=== PATIENT | male | born 1955 | race Caucasian/White ===

== ENCOUNTER 2017-08-12 17:12 | Emergency (ER) | payer BC ==
[2017-08-12] MEDS ORDERED: ASPIRIN PO ONE (17:15)
[2017-08-12] MEDS ORDERED: NITROSTAT SL ONE (17:16)
[2017-08-12] MEDS ORDERED: ASPIRIN ONE (17:16)
--- NOTE | 2017-08-12 17:19 | DR.GENAD ---
HPI - PCP Primary Care Physician: [id number] - Complaint/Symptoms Chief Complaint Doctors Comments: Patient presented to the ED with complaint of midsternal chest all day with some pain in left shoulder. He denies diaphoresis. No history of cardiopulmonary disease or lung disease. ROS - Review of Systems Eyes: No Symptoms Reported ENTM: No Symptoms Reported Respiratoy: No Symptoms Reported Cardiovascular: Chest Pain (mid sternal) Gastrointestinal/Abdominal: No Symptoms Reported Genitourinary: No Symptoms Reported Neurological: No Symptoms Reported Musculoskeletal: No Symptoms Reported Integumentary: No Symptoms Reported Hematologic/Lymphatic: No Symptoms Reported Endocrine: No Symptoms Reported Psychiatric: No Symptoms Reported All Other Systems: Reviewed and Negative PE - Vital Signs Vitals: Temperature 97.2 F Pulse Rate [Right Brachial] 97 Pulse Rate 80 Respiratory Rate 20 Blood Pressure [Left Arm] 134/64 Blood Pressure 195/96 O2 Sat by Pulse Oximetry 94 - General General Appearance: Alert, In No Apparent Distress - Head Head Exam: Normal Inspection, Atraumatic - Eyes Eye exam: Normal Appearance, PERRL, EOMI - ENT ENT Exam: Normal Exam, Normal Oropharynx External Ear Exam: Normal External Inspection TM/Canal Exam: Bilateral Normal Nose Exam: Normal Nose Exam, Sinus Tenderness Mouth Exam: Normal Inspection Throat Exam: Normal Inspection - Neck Neck Exam: Normal Inspection - Chest Chest Inspection: Normal Inspection, Symmetric Chest Wall Rise - Respiratory Respiratory Exam: Normal Lung Sounds Bilat Respiratory Exam: Bilateral Clear to Auscultation - Cardiovascular Cardiovascular Exam: Regular Rate, Normal Rhythm - Abdominal Exam Abdominal Exam: Normal Inspection, Normal Bowel Sounds Abdominal Tenderness: negative: RUQ, RLQ, LUQ, LLQ, Epigastrium, Suprapubic, Diffuse, Mild, Moderate, Severe, Other - Extremities Extremities Exam: Normal Inspection, Full ROM - Back Back Exam: Normal Inspection, Full ROM - Neurologic Neurological Exam: Alert, Oriented X3, CN II-XII Intact - Psychiatric Psychiatric Exam: Normal Affect - Skin Skin Exam: Warm, Dry, Intact Course - Treatment Treatment: EKG: Sinus Rhythm probable LAE; inferior inartct age indeterminate, AnteriorLateral infarct, age inderterminate: Trop 70.68 - Reevaluation 1st: Improved - Consultation Called: 18:10 (Dr Ricci accepted patient for further management 1854) ROR - Labs Reviewed Laboratory Results Reviewed?: Yes (Trop 66.7) Result Diagrams: 08/12/17 17:08/12/17: Laboratory: WBC 9.2 X10^3/uL (3.6-10.0) 08/12/17: RBC 4.50 X10^6/uL (4.7-6.0) L 08/12/17: Hgb 14.9 g/dL (13.5-18.0) 08/12/17: Hct 43.0 % (42.0-54.0) 08/12/17: MCV 95.6 fL (80.0-100.0) 08/12/17 MCH 33.2 pg (27.0-34.0) 08/12/17 MCHC 34.8 g/dL (33.0-35.0) 08/12/17 RDW 13.0 % (11.6-16.5) 08/12/17 Plt Count 156 X10^3/uL (150.0-450.0) 08/12/17 MPV 10.0 fL (7.4-11.0) 08/12/17: Neut % 76.6 % (42.0-75.0) H 08/12/17: Lymph % 14.4 % (21.0-51.0) L 08/12/17: Adams % 7.9 % (0.0-13.0) 08/12/17: Eos % 0.2 % (0.9-2.9) L 08/12/17 Baso % 0.9 % (0.2-1.0) 08/12/17 Neut # 7.1 x10^3/uL (2.2-4.8) H 08/12/17 Lymph # 1.3 X10^3/uL (1.3-2.9) 08/12/17: Adams # 0.7 x10^3/uL (0.3-0.8) 08/12/17: Eos # 0.0 x10^3/uL (0.0-0.2) 08/12/17: Baso # 0.1 X10^3/uL (0.0-0.1) 08/12/17 17:27 Absolute Nucleated RBC 0.0 /100WBC 08/12/17 17:27 INR Target Range - 08/12/17 17: INR 0.93 (0.8-1.3) 08/12/17 17:27 PTT 29.1 SECONDS (22.9-36.5) 08/12/17 17: PTT Comment - 08/12/17 17:27 D-Dimer 183 ng/mL (0-400) 08/12/17 17:27 Sodium 135 mmol/L (136-145) L 08/12/17 17:27 Corrected Sodium TNP 08/12/17 17:27 Potassium 4.4 mmol/L (3.5-5.1) 08/12/17 17:27 Chloride 99 mmol/L (98-107) 08/12/17 17: Carbon Dioxide 25.0 mmol/L (21-32) 08/12/17 17:27 BUN 9 mg/dL (7-18) 08/12/17 17:27 Creatinine 0.81 mg/dL (0.70-1.30) 08/12/17 17:27 Est GFR (MDRD) Af Amer > 60 (>60) 08/12/17 17:27 Est GFR (MDRD) Non-Af > 60 (>60) 08/12/17 17:27 Glucose 105 mg/dL (65-99) H 08/12/17 17:27 Calcium 9.7 mg/dL (8.5-10.1) 08/12/17 17:27 Corrected Calcium TNP 08/12/17 17:27 Magnesium 1.6 mg/dL (1.7-2.9) L 08/12/17 17:27 Total Bilirubin 0.60 mg/dL (0.2-1.0) 08/12/17 17:27 AST 324 Units/L (15-37) H 08/12/17 17:27 ALT 60 Units/L (12-78) 08/12/17 17:27 Alkaline Phosphatase 50 Units/L (46-116) 08/12/17 17:27 Creatine Kinase 2591 Units/L (39-308) H 08/12/17 17:27 CK-MB (CK-2) 771.0 ng/mL (0-4.0) H* 08/12/17 17:27 CK/CKMB % Calc 29.8 % (<4) 08/12/17 17:27 Troponin I 70.68 ng/mL (0-1.5) H* 08/12/17 17:27 Total Protein 7.7 g/dL (6.4-8.2) 08/12/17 17:27 Albumin 3.8 g/dL (3.4-5.0) 08/12/17 17:27 Globulin 3.9 g/dL (2.5-4.5) 08/12/17 17:27 Albumin/Globulin Ratio 1.0 Ratio (1.1-2.1) L 08/12/17 17:27 - XRAY XRAY Interpreted by: Radiologist (Chest: No acute cardiopulmonary disease) - Diagnosis Discharge Problem: Chest pain, rule out acute myocardial infarction - Discharge Plan Condition: Stable - Follow ups/Referrals Follow ups/Referrals: NFD,None [Primary Care Provider] - 3 days - Instructions
[2017-08-12] MEDS: NITROSTAT SL PRN ×2 (17:40→17:45)
[2017-08-12 17:45] LABS: BASOPHILS # (AUTO) 0.1 X10^3/uL (0.0-0.1); BASOPHILS % (AUTO) 0.9 % (0.2-1.0); EOSINOPHILS % (AUTO) 0.2 % (0.9-2.9); HEMOGLOBIN 14.9 g/dL (13.5-18.0); LYMPHOCYTES # (AUTO) 1.3 X10^3/uL (1.3-2.9); LYMPHOCYTES % (AUTO) 14.4 % (21.0-51.0); MEAN CORPUSCULAR HEMOGLOBIN 33.2 pg (27.0-34.0); MEAN CORPUSCULAR HGB CONC 34.8 g/dL (33.0-35.0); MEAN CORPUSCULAR VOLUME 95.6 fL (80.0-100.0); MONOCYTES # (AUTO) 0.7 x10^3/uL (0.3-0.8); MONOCYTES % (AUTO) 7.9 % (0.0-13.0); NEUTROPHILS # (AUTO) 7.1 x10^3/uL (2.2-4.8); NEUTROPHILS % (AUTO) 76.6 % (42.0-75.0); PLATELET COUNT 156 X10^3/uL (150.0-450.0); WHITE BLOOD COUNT 9.2 X10^3/uL (3.6-10.0)
[2017-08-12 17:54] VITALS: BMI 25.8
[2017-08-12 17:59] LABS: BLOOD UREA NITROGEN 9 mg/dL (7-18); CALCIUM 9.7 mg/dL (8.5-10.1); CHLORIDE 99 mmol/L (98-107); CREATININE 0.81 mg/dL (0.70-1.30); SODIUM 135 mmol/L (136-145); eGFR BLACK RACES > 60 (>60); eGFR NON BLACK RACES > 60 (>60)
[2017-08-12 18:05] VITALS: BP 134/64
[2017-08-12] MEDS ORDERED: NITROGLYCERIN IV PREMIX 50 MG 50 MG/250 ML BAG IV ONE (18:16)
[2017-08-12] MEDS ORDERED: NS 1000 ML 1,000 ML ONE (18:17)
[2017-08-12 18:22] LABS: ALANINE AMINOTRANSFERASE 60 Units/L (12-78); ALBUMIN 3.8 g/dL (3.4-5.0); ALKALINE PHOSPHATASE 50 Units/L (46-116); ASPARTATE AMINO TRANSFERASE 324 Units/L (15-37); MAGNESIUM 1.6 mg/dL (1.7-2.9); TOTAL PROTEIN 7.7 g/dL (6.4-8.2)
[2017-08-12] MEDS ORDERED: BRILINTA PO ONE (18:27)
--- NOTE | 2017-08-12 18:27 | RAD ---
HISTORY: 61-year-old male with chest pain. Study: Frontal view of the chest. Comparison: None. Findings: The trachea is midline. The cardiac silhouette is unremarkable. The lungs are clear without focal c onsolidation, effusion or pneumothorax. Soft tissues are unremarkable. Osseous structures are unrema rkable. IMPRESSION: 1. No acute cardiopulmonary disease. Reported By:
[2017-08-12 18:29] LABS: CREATINE KINASE 2591 Units/L (39-308)
[2017-08-12 18:31] LABS: TROPONIN I 70.68 ng/mL (0-1.5)
[2017-08-12] MEDS: BRILINTA PO ONE ×2 (18:32→18:54)
[2017-08-12 18:44] LABS: CKMB % 29.8 % (<4)
[2017-08-12] MEDS ORDERED: HEPARIN SODIUM INJ 5000 UNITS ONE (18:55)
[2017-08-12] MEDS ORDERED: HEPARIN SODIUM IN D5W 25,000 UNITS/500 ML BAG IV PRN (18:56)
[2017-08-12] MEDS ORDERED: HEPARIN SODIUM IN D5W 25,000 UNITS/500 ML BAG IV ONE (18:56)
[2017-08-12] MEDS ORDERED: NITROGLYCERIN IV PREMIX 50 MG 50 MG/250 ML BAG IV PRN (18:56)
[2017-08-12] MEDS ORDERED: ASPIRIN PO SCH (19:00)
[2017-08-12] MEDS ORDERED: HEPARIN SODIUM INJ 5000 UNITS IVP ONE (19:15)
== END 2017-08-12 19:29 | disposition short-term general hospital (02) ==
LOC: ER 17:26
DX: R07.89 Other chest pain (principal)
CPT/HCPCS: 36415; 71045; 80053; 82550; 82553; 83735; 84484; 85025; 85378; 85610; 85730; 93005; 93010; 96365; 96374; 96375; 99285; A4222; J1644